=== PATIENT | female | born 1945 | race Caucasian/White ===

== ENCOUNTER 2019-08-16 12:39 | Observation (INO) ==
[2019-08-16] MEDS ORDERED: NS 1,000 ML ONE (12:46)
[2019-08-16] MEDS ORDERED: NS 1,000 ML IV ONE ×2 (12:49→15:43)
[2019-08-16 13:15] LABS: BASO# 0.02 X1000 (0.0-0.2); BASO% 0.2 % (0.0-0.8); EOS# 0.11 X1000 (0.0-0.7); EOS% 1.1 % (0.0-10.0); HEMATOCRIT 42.3 % (37.0-47.0); HEMOGLOBIN 13.6 g/dL (12.0-16.0); IMM GRAN# 0.02 X1000 (0.0-0.04); IMM GRAN% 0.2 % (0.0-0.5); LYMPH# 2.59 X1000 (1.2-3.4); LYMPH% 24.8 % (20.5-51.1); MCH 29.1 PG (27-31); MCHC 32.2 g/dL (33-37); MCV 90.4 FL (81-99); MONO# 0.27 X1000 (0.11-0.59); MONO% 2.6 % (1.7-9.3); MPV 11.3 FL (7.4-10.4); NEUT# 7.42 X1000 (1.4-6.5); NEUT% 71.1 % (42.2-75.2); PLT 231 X1000 (130-400); RBC 4.68 XMIL (4.2-5.4); RDW 13.5 % (11.5-14.5); WBC 10.43 X1000 (4.8-10.8)
[2019-08-16 13:21] LABS: PROTIME 13.3 Seconds (11.0-16.0)
[2019-08-16 13:22] LABS: PTT 20.1 Seconds (22.3-41.8)
--- NOTE | 2019-08-16 13:44 | EKG Report ---
Test Performed on : 08/16/2019 1:14:00 PM Test Reason : syncope Blood Pressure : / mmHG Vent. Rate : 052 BPM Atrial Rate : 052 BPM P-R Int : 146 ms QRS Dur : 086 ms QT Int : 450 ms P-R-T Axes : 049 029 034 degrees QTc Int : 418 ms Sinus bradycardia. Low voltage QRS Borderline ECG When compared with ECG of 13-FEB-2013 11:36, No significant change was found Unconfirmed Result
[2019-08-16 13:49] LABS: AGAP 14; ALB/GLOB RATIO 1.6; ALBUMIN 4.1 g/dL (3.5-5.0); ALKALINE PHOSPHATASE 45 U/L (32-104); BUN 11 mg/dL (8-22); CALCIUM 9.1 mg/dL (8.8-10.2); CHLORIDE 104 mmol/L (98-107); COSMO 286; CREATININE 0.8 mg/dL (0.5-0.9); ESTIMATED GFR > 60; GLUCOSE 154 mg/dL (70-104); GOT 22 U/L (10-30); GPT 21 U/L (10-36); POTASSIUM 3.9 mmol/L (3.5-5.1); SODIUM 142 mmol/L (136-145); TCO2 24 mmol/L (25-35); TOTAL BILIRUBIN 0.28 mg/dL (0.20-1.00); TOTAL PROTEIN 6.6 g/dL (6.3-8.3)
[2019-08-16 14:00] LABS: URINE SOURCE CLEAN CATCH
[2019-08-16 14:04] LABS: BILIRUBIN URINE NEGATIVE (NEGATIVE); BLOOD URINE SMALL (NEGATIVE); COLOR YELLOW; GLUCOSE URINE 200 mg/dL (NEGATIVE); KETONE URINE NEGATIVE (NEGATIVE); LEUKOCYTES URINE NEGATIVE (NEGATIVE); NITRITE URINE NEGATIVE (NEGATIVE); PH URINE 7.5; PROTEIN URINE NEGATIVE (NEGATIVE); SP GRAVITY URINE 1.013; TURBIDITY URINE CLEAR (CLEAR); UR EPITHELIAL CELLS <10 /HPF (<10); URINE BACTERIA NEGATIVE /HPF; URINE WBC <10 /HPF (<10); UROBILINOGEN URINE NORMAL (NORMAL)
--- NOTE | 2019-08-16 15:33 | PROVIDER DOCUMENTATION ---
This chart was entered by Birgit Jordan Scribe, acting as scribe for Nehemias Martinez MD. HPI-Syncope/Dizziness - General Stated Complaint: POST OP SURGERY TODAY Time Seen by Provider: 08/16/19 12:49 Source: patient Allergies/Adverse Reactions: Patient Allergies Allergy/AdvReac Type Severity Reaction Status Date / Time No Known Allergies Allergy Verified 08/16/19 12:58 Home Medications: Home Medication List Medication Instructions Recorded Confirmed Last Taken Type Calcium Carb/Vit D3/Minerals 1 each PO DAILY 02/13/13 08/16/19 08/15/19 05:15 History [Calcium 600 + D Tablet] Citalopram [Celexa] 20 mg PO DAILY 02/13/13 08/16/19 08/15/19 05:15 History Multivitamin [Multivitamins] 1 each PO DAILY 02/13/13 08/16/19 08/15/19 15:00 History PRAVAstatin [Pravachol] 40 mg PO DAILY 02/13/13 08/16/19 08/15/19 20:30 History Biotin 1,000 mcg PO DAILY 08/13/19 08/16/19 08/15/19 05:15 History Cyanocobalamin (Vitamin B-12) 1,000 mcg PO DAILY 08/13/19 08/16/19 08/15/19 05:00 History [Vitamin B-12] Aspirin 1 tab PO DAILY 08/16/19 08/16/19 08/15/19 History Levothyroxine [Synthroid] 10 tab PO DAILY 08/16/19 08/16/19 08/15/19 History - History of Present Illness-Syncope/Dizzy Nature of Presenting Problem: Patient is a 73 year old female who presents to the ED after having 2 syncopal episodes. States having a fatty tumor removed from left lateral thigh this morning by Dr. Boyce. Denies taking blood thinners. Prior Episodes: reports: multiple episodes today (2) Onset/Duration: reports: this morning Timing: reports: intermittent Symptoms prior to episode: reports: other (dizziness) Context: reports: lost consciousness Loss of Consciousness: brief (seconds) Current Symptoms: reports: weakness Recently Seen Here or By Another Healthcare Provider: Yes (surgery this morning by Dr. Boyce.) - Dizziness Dizziness Related Current/Associated Symptoms: reports: weakness, syncope Any recent trauma/injury?: reports: none Review of Systems - Adult - REVIEW OF SYSTEMS - ADULT Constitutional: reports: no symptoms reported. denies: chills, fever, fatique Eyes: reports: no symptoms reported Ears, Nose, Mouth & Throat: reports: no symptoms reported Cardiovascular: reports: no symptoms reported Respiratory: reports: no symptoms reported Gastrointestinal: reports: no symptoms reported Genitourinary: reports: no symptoms reported Musculoskeletal: reports: see HPI, muscle weakness. denies: back pain, neck pain Integumentary: reports: no symptoms reported Neurological: reports: see HPI, dizziness/vertigo, syncope. denies: headache/migraines Psychiatric: reports: no symptoms reported Endocrine: reports: no symptoms reported Hematologic/Lymphatic: reports: no symptoms reported Allergic/Immunologic: reports: no symptoms reported All Other Systems: Reviewed and Negative Past History - Adult - PAST MEDICAL HISTORY-ADULT Review of Records: reports: Old Records Reviewed, Social history reviewed & non- contributory. Major Childhood Illnesses: reports: denies history Cardiovascular: reports: denies history Respiratory: reports: denies history Gastrointestinal: reports: denies history Obstetrical/Gynecological: reports: denies history Genitourinary: reports: denies history Musculoskeletal: reports: denies history Neurological: reports: denies history Endocrine/Immune: reports: thyroid disorder Other Conditions: reports: denies history - PRIOR SURGERIES/PROCEDURES Surgical/Procedure History: reports: cholecystectomy - IMMUNIZATION STATUS Childhood Immunizations: See Nurse Assessment Flu Vaccine: See Nurse Assessment - FAMILY HISTORY Family History: reviewed, not pertinent - SOCIAL HISTORY Smoking: cigarettes (former) Substance Use: denies Living Situation: family Physical Exam-General - PHYSICAL EXAM-ADULT Initial Vital Signs Reviewed: Yes - CONSTITUTIONAL General Appearance: alert, no apparent distress. negative: lethargic - EYES Eyes: pale conjunctivae. negative: scleral icterus, sunken eyes - HEAD, EARS, NOSE, MOUTH & THROAT HENMT: normocephalic/atraumatic, moist mucous membranes. negative: angioedema - RESPIRATORY Respiratory: chest non-tender, lungs clear, normal breath sounds. negative: crackles, stridor - CARDIOVASCULAR Cardiovascular: normal peripheral pulses, regular rate, rhythm. negative: tachycardia - GASTROINTESTINAL (ABDOMEN) Abdominal Exam: normal bowel sounds, non tender, soft. negative: guarding, rebound - MUSCULOSKELETAL Extremity: swelling (left lateral thigh.), other (post surgical incision site to left lateral thigh with active bleeding present). negative: erythema - SKIN Integumentary: normal turgor, pallor, swelling (left lateral thigh), other (post surgical incision site to left lateral thigh with active bleeding present). negative: ecchymosis - NEUROLOGIC Neurologic: grossly normal. negative: aphasia, facial droop - PSYCHIATRIC Psych/Mental Status: normal mood/affect, oriented x 3. negative: anxious Progress - PLAN OF CARE/RESULTS Progress/Plan/Lab Results: Vital Signs - 8 hr 08/16/19 12:46 08/16/19 12:47 08/16/19 12:50 Temperature 97.8 F Pulse Rate 83 62 Respiratory Rate 12 15 Blood Pressure 105/57 105/57 O2 Sat by Pulse Oximetry 95 99 96 08/16/19 13:00 08/16/19 13:03 08/16/19 13:17 Temperature Pulse Rate 51 L 53 L 57 L Respiratory Rate 19 17 20 Blood Pressure 126/45 141/71 O2 Sat by Pulse Oximetry 99 100 99 08/16/19 13:30 08/16/19 13:32 08/16/19 13:47 Temperature Pulse Rate 73 66 83 Respiratory Rate 18 14 22 Blood Pressure 139/60 152/73 O2 Sat by Pulse Oximetry 97 100 100 08/16/19 14:00 08/16/19 14:03 08/16/19 14:17 Temperature Pulse Rate 71 68 78 Respiratory Rate 18 18 18 Blood Pressure 131/57 131/79 O2 Sat by Pulse Oximetry 100 100 08/16/19 14:30 08/16/19 14:32 08/16/19 14:47 Temperature Pulse Rate 75 65 63 Respiratory Rate 21 19 18 Blood Pressure 129/69 144/74 O2 Sat by Pulse Oximetry 96 99 97 08/16/19 15:05 08/16/19 15:18 Temperature Pulse Rate 94 H 85 Respiratory Rate 22 Blood Pressure 172/89 151/91 O2 Sat by Pulse Oximetry 99 99 Laboratory Results - last 24 hr 08/16/19 08/16/19 08/16/19 12:44 12:44 12:44 WBC 10.43 RBC 4.68 Hgb 13.6 Hct 42.3 MCV 90.4 MCH 29.1 MCHC 32.2 L RDW Std Deviation 13.5 Plt Count 231 MPV 11.3 H Immature Gran % (Auto) 0.2 Neut % (Auto) 71.1 Lymph % (Auto) 24.8 [place] % (Auto) 2.6 Eos % (Auto) 1.1 Baso % (Auto) 0.2 Immature Gran # (Auto) 0.02 Neut # (Auto) 7.42 H Lymph # (Auto) 2.59 [place] # (Auto) 0.27 Eos # (Auto) 0.11 Baso # (Auto) 0.02 PT 13.3 INR 1.00 PTT (Actin FS) 20.1 L Sodium 142 Potassium 3.9 Chloride 104 Carbon Dioxide 24 L Anion Gap 14 BUN 11 Creatinine 0.8 Estimated GFR/1.73 m2 > 60 BUN/Creatinine Ratio 14 Glucose 154 H POC Glucose Calculated Osmolality 286 Calcium 9.1 Total Bilirubin 0.28 AST 22 ALT 21 Alkaline Phosphatase 45 Total Protein 6.6 Albumin 4.1 Globulin 2.5 Albumin/Globulin Ratio 1.6 Urine Source Urine Color Urine Turbidity Urine pH Ur Specific [place] Urine Protein Ur Glucose (Stick) Ur Ketones (Stick) Urine Blood Urine Nitrite Urine Bilirubin Urobilinogen Dipstick Urine Leukocytes Urine WBC (Auto) Urine RBC (Auto) U Epithel Cells (Auto) Urine Bacteria (Auto) 08/16/19 08/16/19 13:07 13:52 WBC RBC Hgb Hct MCV MCH MCHC RDW Std Deviation Plt Count MPV Immature Gran % (Auto) Neut % (Auto) Lymph % (Auto) [place] % (Auto) Eos % (Auto) Baso % (Auto) Immature Gran # (Auto) Neut # (Auto) Lymph # (Auto) [place] # (Auto) Eos # (Auto) Baso # (Auto) PT INR PTT (Actin FS) Sodium Potassium Chloride Carbon Dioxide Anion Gap BUN Creatinine Estimated GFR/1.73 m2 BUN/Creatinine Ratio Glucose POC Glucose 128 H Calculated Osmolality Calcium Total Bilirubin AST ALT Alkaline Phosphatase Total Protein Albumin Globulin Albumin/Globulin Ratio Urine Source CLEAN CATCH Urine Color YELLOW Urine Turbidity CLEAR Urine pH 7.5 Ur Specific [place] 1.013 Urine Protein NEGATIVE Ur Glucose (Stick) 200 A Ur Ketones (Stick) NEGATIVE Urine Blood SMALL A Urine Nitrite NEGATIVE Urine Bilirubin NEGATIVE Urobilinogen Dipstick NORMAL Urine Leukocytes NEGATIVE Urine WBC (Auto) <10 Urine RBC (Auto) 10-20 A U Epithel Cells (Auto) <10 Urine Bacteria (Auto) NEGATIVE Orders Category Date Time Status CBC WITH ELECTRONIC DIFF [HEME] Stat Lab 08/16/19 12:44 Completed COMPREHENSIVE METABOLIC PANEL [CHEM] Stat Lab 08/16/19 12:44 Completed PT [PROTIME WITH INR] [COAG] Stat Lab 08/16/19 12:44 Completed PTT [COAG] Stat Lab 08/16/19 12:44 Completed URINALYSIS W/POSS RFLX CULT [URINALYSIS] Stat Lab 08/16/19 13:52 Completed 0.9% Sodium Chloride Inj [Ns] 1,000 ml Med 08/16/19 12:46 Discontinued .ROUTE As directed 0.9% Sodium Chloride Inj [Ns] 1,000 ml Med 08/16/19 12:49 Discontinued IV 999 mls/hr EKG [EKG] Stat Ther 08/16/19 13:17 Draft Transfer/Admit Order [TRANSFER] Routine Transfer 08/16/19 15:11 Ordered 1515 - RN states Dr. Boyce stated he will admit patient. Result Diagrams: 08/16/19 12:44 08/16/19 12:44 - EKG 1 Time of EKG reading by physician:: 13:14 EKG Read and Signed by:: Nehemias Martinez EKG Interpretation (*Must complete 3 of following elements*): Abnormal Rate: 52 Rhythm: sinus bradycardia [place]: normal QRS: other (low voltage) [place] Interval: normal Comments: borderline ECG - CONSULTS/PCP/HOSPITALIST Notification #1 *Consult/PCP/Hospitalist*: Dr. Boyce Time Discussed: 14:59 Reason/Comments: Dr. Martinez consulted with Dr. Boyce about patient. Consult Disposition: Will see in ED, Admit Departure - Departure Date of Disposition Decision: 08/16/19 Time of Disposition Decision: 15:32 DIAGNOSIS: Syncope and collapse, Post-op bleeding, Symptomatic bradycardia Disposition: ADMITTED INPATIENT 09 Certified Medical Emergency: Emergent Condition: Fair Referrals and Follow-Ups: Fitz Lainez MD [Primary Care Provider] - - Critical Care Note This patient required my direct & personal management of CC.: Yes Attestation - Physician/ AUBRIE Attestation Patient care was provided by Advanced Practice Provider:: No The physician spent face to face time with patient:: Yes Advanced Practice Provider documentation review:: Supervising physician onsite and consulted in the evaluation and care of this patient. The physician did have a face to face encounter with the patient. This chart was documented by the indicated scribe, (Birgit Jordan, [place]) and accurately reflects the services I performed and decisions made by me, Nehemias Martinez MD, as attested by the provider's signature.
[2019-08-16] MEDS ORDERED: NORCO-10 PO PRN (15:43)
[2019-08-16] MEDS ORDERED: MORPHINE IV PRN (15:43)
--- NOTE | 2019-08-16 16:06 | HISTORY AND PHYSICAL ---
CHIEF COMPLAINT: Postoperative bleeding. HISTORY OF PRESENT ILLNESS: This is a 73-year-old female who underwent lipoma excision of the left hip area today by me. She was discharged from outpatient surgery. She proceeded to go to a local restaurant and ordered some food. After she got back in the car she noticed some bleeding. She then passed out. Her brought her back to the emergency room. She had regained consciousness. Her initial vital signs on presentation were pulse 83, blood pressure 105/57, O2 saturation 99%. Since then, her blood pressure is improved to the 120s to 140s systolic, pulses remain in the 60s to 70s, O2 saturation remains 96 to 100 percent. I was consulted for further evaluation. PAST MEDICAL HISTORY: Melanoma, lipoma, hypothyroidism. HOME MEDICATIONS: Aspirin, Synthroid, vitamin B12, biotin, Celexa, Pravachol, calcium carbonate and vitamin D3, multivitamin. ALLERGIES: No known drug allergies. PAST SURGICAL HISTORY: Lipoma excision, melanoma excision. FAMILY HISTORY: Reviewed and noncontributory. SOCIAL HISTORY: Negative tobacco, alcohol or illicit drug use. REVIEW OF SYSTEMS: Ten systems reviewed and negative except as noted above. PHYSICAL EXAMINATION: VITAL SIGNS: Temperature normal, pulse 63, respirations 18, blood pressure 144/74, O2 saturation 97%. GENERAL: Well-developed female in no distress who looks her stated age. CV: Regular rate and rhythm. RESPIRATORY: Bilateral breath sounds. No work of breathing. SKIN: Her left hip wound was examined. The suture line is intact. There is some bruising and hematoma. There is some bleeding through the incision but it appears to be some mixture of old blood and perhaps a little new blood. LABORATORY: White blood cell count 10, hemoglobin 13, hematocrit 42. Coagulation parameters are within normal limits. Electrolytes reviewed and unremarkable. Urinalysis reviewed and unremarkable. ASSESSMENT AND PLAN: A 73-year-old female with left hip incisional hematoma and a syncopal episode. She will be admitted for observation. We will recheck her hemoglobin and hematocrit in the morning and I will ask my partner, Dr. Bryant, to wash the hematoma out and reclose it tomorrow rather than today since she did have some food recently. cc: Crow Boyce MD
--- NOTE | 2019-08-16 20:43 | GENERAL SURGERY PROGRESS NOTE ---
DATE: 08/16/2019 I have been asked by Dr. Boyce to see Ms. Vaughan and evacuate her hematoma that she developed today after surgery. I discussed this with her. We will plan to keep her NPO after midnight. Evacuate the hematoma in the morning and allow her to go home if all is well. She understands and agrees to proceed. cc: MD Crow Watts MD
[2019-08-17] MEDS ORDERED: SYNTHROID PO SCH (07:00)
[2019-08-17] MEDS ORDERED: XYLOCAINE-MPF 2% ONE (07:36)
[2019-08-17] MEDS ORDERED: DIPRIVAN 1% ONE (07:36)
[2019-08-17 07:41] LABS: HEMOGLOBIN 13.1 g/dL (12.0-16.0)
[2019-08-17] MEDS ORDERED: SENSORCAINE 0.5%-EPI 1:200,000 ONE (07:45)
[2019-08-17] MEDS ORDERED: VERSED ONE (07:56)
[2019-08-17] MEDS ORDERED: ZOFRAN ONE ×2 (08:18→08:57)
[2019-08-17] MEDS ORDERED: DECADRON ONE (08:18)
[2019-08-17] MEDS ORDERED: DILAUDID ONE (08:54)
[2019-08-17] MEDS ORDERED: CELEXA PO SCH (09:00)
[2019-08-17] MEDS ORDERED: PRAVACHOL PO SCH (09:00)
[2019-08-17] MEDS ORDERED: NORCO-10 ONE (09:14)
--- NOTE | 2019-08-17 09:51 | OPERATIVE NOTE ---
PROCEDURE DATE : 08/17/2019 NAME OF THE PROCEDURE: 1. Exploration of left hip wound. 2. Evacuation of hematoma. SURGEON: Fitz Bryant MD LAUNDRY TECH: [place] PREOPERATIVE DIAGNOSIS: Postoperative hematoma. POSTOPERATIVE DIAGNOSIS: Postoperative hematoma. INDICATION: A 73-year-old who underwent removal of a lipoma of the left hip yesterday. After discharge she developed a large hematoma within the wound. She was readmitted by Dr. Boyce and I have been asked to evacuate the hematoma. DESCRIPTION OF PROCEDURE: Satisfactory general anesthesia was achieved. The patient was placed in the decubitus position with the left hip up. The left hip area was prepped and draped in sterile fashion. We then incised the subcutaneous stitches that were holding the skin together. We then cut the subcutaneous stitches and entered the operative cavity where a large hematoma was present. We evacuated the hematoma until it was completely evacuated and all the fresh clot was removed. There was no obvious bleeding source. We copiously irrigated out the cavity with saline. We then used 3-0 Polysorb simple stitches to approximate some of the soft tissue to occupy the space. This caused a moderate amount of dimpling of the skin. We placed 3-0 Polysorb in the subcutaneous tissue as well and then closed the skin with a 4-0 Biosyn subcuticular stitch. A sterile dressing was applied. She tolerated it well and was sent to the recovery room in satisfactory condition. cc: MD Crow Watts MD
[2019-08-17 16:11] VITALS: BP 105/37
--- NOTE | 2019-08-17 16:22 | GENERAL SURGERY PROGRESS NOTE ---
DATE: 08/17/2019 SUBJECTIVE/OBJECTIVE: It is 3:55 in the afternoon. Her bandage is dry. There is no evidence of hematoma. ASSESSMENT AND PLAN: We will let her go home. She already has a prescription for pain medicine. She already has a followup appointment with Dr. Boyce. She is doing well. cc: MD Crow Watts MD
== END 2019-08-17 17:02 | disposition home or self-care (01) ==
LOC: 4N 12:39 → ED 12:39
PROVIDERS: ADMIT Surgery; ATTEND Surgery